=== PATIENT | male | born 1960 | race Caucasian/White ===

== ENCOUNTER 2020-03-28 10:59 | Inpatient (IN) ==
[2020-03-28] MEDS ORDERED: Ringers Solution, Lactated 1,000 ML IVC SCH ×2 (11:15→14:13)
[2020-03-28] MEDS ORDERED: CeFAZolin Syr 3,000MG/30 ML 3,000 MG/30 ML SYRINGE IVPB ONE (11:15)
[2020-03-28] MEDS ORDERED: Vancomycin 1,000 MG VIAL ONE (11:29)
[2020-03-28] MEDS ORDERED: Ethanol\\Acetic Acid\\Na Ace\\Ben 1,000 ML IRRIG.SOLN IR ONE (11:29)
[2020-03-28] MEDS ORDERED: *HR* HYDROmorphone (PF) 1 MG/ML SYRINGE IVP PRN (11:33)
[2020-03-28] MEDS ORDERED: Pregabalin 75 MG CAPSULE PO ONE (11:33)
[2020-03-28] MEDS ORDERED: Famotidine 20 MG/2 ML VIAL IVP ONE (11:33)
[2020-03-28] MEDS ORDERED: *HR* OxyCODONE Immed Rel 5 MG TABLET PO PRN ×2 (11:33→14:13)
[2020-03-28] MEDS ORDERED: *HR* Promethazine 25 MG/ML VIAL IVP PRN (11:33)
[2020-03-28] MEDS ORDERED: Acetaminophen IV 1,000 MG/100 ML BAG IVPB ONE (11:33)
[2020-03-28] MEDS ORDERED: *HR* Labetalol 20 MG/4 ML SYRINGE IVP PRN (11:33)
[2020-03-28] MEDS ORDERED: *HR* HYDROmorphone 2 MG TABLET PO PRN (11:33)
[2020-03-28] MEDS ORDERED: *HR* Midazolam HCl 2 MG/2 ML VIAL ONE (11:50)
[2020-03-28] MEDS ORDERED: *HR* FentaNYL (PF) 100 MCG/2 ML VIAL ONE (11:51)
[2020-03-28 14:04] LABS: Hematocrit 40.5 % (37.5-50.1); Hemoglobin 13.6 g/dL (12.9-16.9)
[2020-03-28] MEDS ORDERED: MOM Conc 10 ML UD.LIQ PO PRN (14:13)
[2020-03-28] MEDS ORDERED: Ondansetron 4 MG/2 ML VIAL IVP PRN (14:13)
[2020-03-28] MEDS ORDERED: Naloxone 0.4 MG/ML INJ IVP PRN (14:13)
[2020-03-28] MEDS ORDERED: D5% in Water 1,000 ML IVC PRN (14:13)
[2020-03-28] MEDS ORDERED: Dextrose Gel 15 GM/37.5 ML TUBE PO PRN ×2 (14:13)
[2020-03-28] MEDS ORDERED: Sennosides 8.6 MG TABLET PO PRN (14:13)
[2020-03-28] MEDS ORDERED: *HR* Dextrose 50 % in Water (Vial) 50 ML VIAL IVP PRN (14:13)
[2020-03-28] MEDS ORDERED: *HR* OxyCODONE/APAP 5/325 TABLET PO PRN (14:13)
[2020-03-28] MEDS ORDERED: Insulin LISPRO 300 UNITS/3 ML VIAL SQ SCH ×2 (16:30→21:00)
[2020-03-28] MEDS ORDERED: ceFAZolin 3,000 MG in 0.9 % Sodium Chloride 100 ML IVPB ONE (16:45)
[2020-03-28] MEDS ORDERED: carvediloL 25 MG TABLET PO SCH (17:00)
[2020-03-28] MEDS ORDERED: Warfarin perPT PO PRN (17:33)
[2020-03-28] MEDS ORDERED: *HR* Enoxaparin 30 MG/0.3 ML SYRINGE SQ SCH ×2 (18:00)
[2020-03-28] MEDS ORDERED: TACROLIMUS 2 MG PO SCH (18:00)
[2020-03-28] MEDS ORDERED: *HR* Warfarin 5 MG TABLET PO SCH (18:00)
[2020-03-28] MEDS ORDERED: Anticoagulation Consult 1 Each MC ONE (18:59)
[2020-03-28 19:59] VITALS: BP 156/90
[2020-03-28] MEDS ORDERED: ceFAZolin 3,000 MG in 0.9 % Sodium Chloride 100 ML IVPB SCH (21:00)
[2020-03-28] MEDS ORDERED: Insulin DETEMIR 100 UNIT/ML X5UNITS SQ SCH (21:00)
[2020-03-28] MEDS ORDERED: Mycophenolate Sodium (DR) 180 MG TABLET.DR PO SCH (21:00)
[2020-03-29] MEDS ORDERED: calcitrioL 0.25 MCG CAPSULE PO SCH (09:00)
[2020-03-29] MEDS ORDERED: predniSONE 5 MG TABLET PO SCH (09:00)
[2020-03-29] MEDS ORDERED: Cholecalciferol (D-3) 1,000 UNIT (25MCG) TABLET PO SCH (09:00)
[2020-03-29] MEDS ORDERED: Iron Polysaccharide Complex 150 MG CAPSULE PO SCH (09:00)
[2020-03-29] MEDS ORDERED: Aspirin Enteric Coated 81 MG Tablet PO SCH (09:00)
[2020-03-29] MEDS ORDERED: amLODIPine 5 MG TABLET PO SCH (09:00)
[2020-03-29] MEDS ORDERED: *HR* SitaGLIPtin 100 MG TABLET PO SCH (09:00)
[2020-03-29] MEDS ORDERED: lisinopriL 10 MG TABLET PO SCH (09:00)
[2020-03-29] MEDS ORDERED: Multivit/Ca/Min/Fe/FA 1 TAB TABLET PO SCH (09:00)
[2020-03-29] MEDS ORDERED: *HR* Warfarin 7.5 MG TABLET PO SCH (18:00)
== END 2020-03-28 19:00 | disposition home or self-care (01) | DRG 483 ==
LOC: SAMDAY 10:59 → 3NENU 14:05
PROVIDERS: ADMIT Orthopaedic Surgery; ATTEND Orthopaedic Surgery